=== PATIENT | male | born 1985 | race African-American/Black ===

== ENCOUNTER 2024-04-14 00:54 | Inpatient (IN) | payer OTHER ==
[2024-04-14] VITALS (27 sets, daily range): BP systolic 92–143; BP diastolic 56–109; PULSE 21–96; RESP 7–25; TEMP 97.6–98.2; O2SAT 82–100
[~2024-04-14] VITALS: Ht 167.6 cm; Wt 105.9 kg
[2024-04-14] MEDS: ONDANSETRON HCL INJ 2MG/ML 2ML 2 MG/ML VIAL IV STA (01:41)
[2024-04-14] MEDS: Morphine 4mg INJECTION 4 MG/ML INJ IV ONE (01:41)
[2024-04-14 02:03] LABS: BASOPHILS # (AUTO) 0.1 (0.0-0.1); BASOPHILS % 0.8 % (0.0-1.0); EOSINOPHILS # (AUTO) 0.1 (0.0-0.4); EOSINOPHILS % 1.6 % (0.0-6.0); HEMATOCRIT 41.9 % (38.2-49.6); HEMOGLOBIN 13.6 g/dL (14.0-18.0); LYMPHOCYTES # (AUTO) 2.8 (1.0-3.2); LYMPHOCYTES % 45.1 % (18.0-39.1); MEAN CORPUSCULAR HEMOGLOBIN 29.1 pg (28-32); MEAN CORPUSCULAR HGB CONC 32.5 g/dL (31-35); MEAN CORPUSCULAR VOLUME 89.5 fL (81-99); MONOCYTES # (AUTO) 0.8 (0.2-0.8); MONOCYTES % 12.3 % (4.4-11.3); NEUTROPHILS # (AUTO) 2.4 (2.1-6.9); NEUTROPHILS % 39.9 % (38.7-80.0); PLATELET COUNT 224 x10e3/uL (140-360); RED BLOOD COUNT 4.68 x10e6/uL (4.3-5.7); RED CELL DISTRIBUTION WIDTH 18.6 % (11.7-14.4)
[2024-04-14] MEDS: DIAZEPAM INJ 5 MG/ML 2 ML IV ONE (02:12)
[2024-04-14 02:15] LABS: ANION GAP 14.5 mmol/L (8-16); CALCIUM 8.5 mg/dL (8.4-10.2); CREATININE, SERUM 1.5 mg/dL (0.72-1.25); POTASSIUM 3.5 mmol/L (3.5-5.1)
[2024-04-14] MEDS ORDERED: Morphine 4mg INJECTION 4 MG/ML INJ IV PRN ×2 (02:45→05:50)
[2024-04-14] MEDS ORDERED: ONDANSETRON HCL INJ 2MG/ML 2ML 2 MG/ML VIAL IV PRN (02:45)
[2024-04-14] MEDS: SODIUM CHLORIDE 0.9% 1000ML 1,000 ML IV ONE (03:35)
[2024-04-14] MEDS: HYDROMORPHONE 1MG/1ML INJ IV STA (03:56)
[2024-04-14 04:43] LABS: INR 0.95; PARTIAL THROMBOPLASTIN TIME 31.9 seconds (23.8-35.5); PROTHROMBIN TIME 13.4 seconds (11.9-14.5)
[2024-04-14] MEDS: HYDROMORPHONE 1MG/1ML INJ IV PRN ×2 (10:41→17:49)
[2024-04-14] MEDS ORDERED: BUPIVACAINE 0.25% 30ML SDV ONE (12:27)
[2024-04-14] MEDS ORDERED: SUGAMMADEX SODIUM 200 MG/2 ML VIAL IV ONE (13:43)
[2024-04-14] MEDS ORDERED: ACETAMINOPHEN 1000 MG/100 ML IV PRN (14:15)
[2024-04-14] MEDS ORDERED: ENTRESTO 24 MG1 EACH PO (15:53)
[2024-04-14] MEDS ORDERED: BUMETANIDE1 MG PO (15:53)
[2024-04-14] MEDS ORDERED: METOPROLOL SUCC25 MG PO (15:53)
[2024-04-14] MEDS ORDERED: LIDOCAINE HCL 2% LOCAL INJ 5 ML SDV VIAL INJ ONE (16:22)
[2024-04-14] MEDS ORDERED: METOPROLOL TARTRATE INJ 1 MG/ML VIAL ONE (16:22)
[2024-04-14] MEDS ORDERED: PROPOFOL IV EMULSION 10 MG/ML 20 ML VIAL ONE (16:22)
[2024-04-14] MEDS ORDERED: ESMOLOL HCL 100MG/10ML 10 MG/ML VIAL ONE (16:22)
[2024-04-14] MEDS ORDERED: SUCCINYLCHOLINE CHLORIDE 20 MG/ML 10ML VIAL ONE (16:22)
[2024-04-14] MEDS ORDERED: DEXAMETHASONE SOD PHOS INJ 4 MG/ML SDV ONE (16:22)
[2024-04-14] MEDS ORDERED: ROCURONIUM BROMIDE 10 MG/ML 5ML VIAL IV ONE (16:22)
[2024-04-14] MEDS ORDERED: ETOMIDATE 2 MG/ML 10 ML INJ IV ONE (16:22)
[2024-04-14] MEDS ORDERED: SEVOFLURANE INHAL SOLN 250 ML PEN BTL ONE (16:22)
[2024-04-14] MEDS ORDERED: CEFTRIAXONE 1 GM VIAL ONE (16:22)
[2024-04-14] MEDS ORDERED: FENTANYL CITRATE/PF 100MCG/2 ML INJ ONE (16:24)
[2024-04-14] MEDS: SACUBITRIL/VALSARTAN 24MG/26MG 1 EA TAB PO SCH (16:51)
[2024-04-14] MEDS: ZOLPIDEM TARTRATE 5 MG TAB PO PRN (21:52)
[2024-04-15] VITALS (25 sets, daily range): BP systolic 80–117; BP diastolic 50–72; PULSE 53–83; RESP 5–26; TEMP 97.7–97.9; O2SAT 93–100
[2024-04-15] MEDS: HYDROCODONE/APAP 7.5MG-325MG 1 EA TAB PO PRN (04:55)
[2024-04-15 06:42] LABS: ALBUMIN 3.8 g/dL (3.5-5.0); ALBUMIN/GLOBULIN RATIO 1.2 (0.8-2.0); ANION GAP 15.5 mmol/L (8-16); CALCIUM 9.2 mg/dL (8.4-10.2); CREATININE, SERUM 1.71 mg/dL (0.72-1.25); POTASSIUM 4.5 mmol/L (3.5-5.1); TOTAL PROTEIN 6.9 g/dL (6.5-8.1)
[2024-04-15 07:00] LABS: BILIRUBIN,TOTAL 1.3 mg/dL (0.2-1.2)
[2024-04-15 08:48] LABS: BASOPHILS % 0.2 % (0.0-1.0); EOSINOPHILS % 0.2 % (0.0-6.0); HEMATOCRIT 30.4 % (38.2-49.6); HEMOGLOBIN 9.9 g/dL (14.0-18.0); LYMPHOCYTES # (AUTO) 2.3 (1.0-3.2); LYMPHOCYTES % 18.1 % (18.0-39.1); MEAN CORPUSCULAR HEMOGLOBIN 29.2 pg (28-32); MEAN CORPUSCULAR HGB CONC 32.6 g/dL (31-35); MEAN CORPUSCULAR VOLUME 89.7 fL (81-99); MONOCYTES # (AUTO) 1.3 (0.2-0.8); MONOCYTES % 10.2 % (4.4-11.3); NEUTROPHILS # (AUTO) 8.9 (2.1-6.9); NEUTROPHILS % 70.9 % (38.7-80.0); PLATELET COUNT 196 x10e3/uL (140-360); RED BLOOD COUNT 3.39 x10e6/uL (4.3-5.7); RED CELL DISTRIBUTION WIDTH 18.5 % (11.7-14.4); WHITE BLOOD COUNT 12.46 x10e3/uL (4.8-10.8)
[2024-04-15] MEDS: BUMETANIDE 1 MG TAB PO SCH (09:15)
[2024-04-15] MEDS: OXYCODONE HCL IR 5 MG TAB PO PRN (09:16)
[2024-04-15] MEDS: METOPROLOL SUCCINATE 25 MG TAB XL PO SCH (12:07)
== END 2024-04-15 15:07 | disposition home or self-care (01) | DRG 354 ==
LOC: ER 01:05 → ERHOLD 02:37 → MED/SURG2 03:28 → OBSVTOIN 07:57 → ICU 15:27
PROVIDERS: ADMIT Internal Medicine; ATTEND Internal Medicine
PROC: 0DBU0ZX Excision of Omentum, Open Approach, Diagnostic (ICD-10-PCS; 2024-04-14)
PROC: 0WUF0JZ Supplement Abdominal Wall with Synthetic Substitute, Open Approach (ICD-10-PCS; principal; 2024-04-14 12:52)
DX: K42.0 Umbilical hernia with obstruction, without gangrene (principal); I50.22 Chronic systolic (congestive) heart failure; N17.9 Acute kidney failure, unspecified; D64.9 Anemia, unspecified; D72.829 Elevated white blood cell count, unspecified; E78.5 Hyperlipidemia, unspecified; E66.9 Obesity, unspecified; Z68.37 Body mass index [BMI] 37.0-37.9, adult; Z11.52 Encounter for screening for COVID-19; Z59.9 Problem related to housing and economic circumstances, unspecified; Z88.8 Allergy status to other drugs, medicaments and biological substances
CPT/HCPCS: 36415; 71045; 80048; 80053; 83735; 85025; 85610; 85730; 88302; 93005; 93306; 94799; 99284; C1781; J0330; J0696; J1100; J1170; J2001; J2270; J2405; J2470; J2543; J3360; J7030; U0002